=== PATIENT | male | born 1990 | race Caucasian/White ===

== ENCOUNTER 2019-01-10 13:41 | Observation (INO) | payer MEDICAID, OTHER ==
[~2019-01-10] VITALS: Ht 182.9 cm; Wt 113.0 kg
[2019-01-10] MEDS ORDERED: morphine 4 MG/ML inj SYRINge IV ONE ×3 (13:50→18:55)
[2019-01-10] MEDS ORDERED: ondansetron/PF 4mg/2ml inj IV ONE (13:50)
[2019-01-10] MEDS ORDERED: normal saline 1000ML IV soln IVB ONE (13:50)
[2019-01-10] MEDS ORDERED: iohexol 300mg/ml 100ml inj. ONE (13:56)
--- NOTE | 2019-01-10 14:01 | NUR ---
completed his fast which was negative
[2019-01-10 14:04] LABS: BASOPHILS # (AUTO) 0.1 X10'3 (0-0.2); BASOPHILS % (AUTO) 1.1 % (0-1); EOSINOPHILS # (AUTO) 0.1 X10'3 (0-0.9); EOSINOPHILS % (AUTO) 0.9 % (0-6); HEMATOCRIT 48.3 % (42.0-52.0); HEMOGLOBIN 16.8 g/dl (14.0-17.9); LYMPHOCYTES # (AUTO) 2.4 X10'3 (1.1-4.8); LYMPHOCYTES % (AUTO) 32.7 % (21-51); MEAN CORPUSCULAR HEMOGLOBIN 30.1 PG (27.0-31.0); MEAN CORPUSCULAR HGB CONC 34.9 g/dL (33.0-36.5); MEAN CORPUSCULAR VOLUME 86.4 FL (78-98); MEAN PLATELET VOLUME 7.4 FL (7.4-10.4); MONOCYTES # (AUTO) 0.6 X10'3 (0-0.9); MONOCYTES % (AUTO) 7.6 % (2-12); NEUTROPHILS # (AUTO) 4.3 X10'3 (1.8-7.7); NEUTROPHILS % (AUTO) 57.7 % (42-75); PLATELET COUNT 443 X10'3 (140-440); RED BLOOD COUNT 5.59 X10'6 (4.70-6.10); RED CELL DISTRIBUTION WIDTH 12.6 % (11.5-14.5); WHITE BLOOD COUNT 7.4 X10'3 (4.5-11.0)
[2019-01-10 14:14] LABS: ALANINE AMINOTRANSFERASE 58 U/L (12-78); ALBUMIN 4.6 G/DL (3.4-5.0); ALBUMIN/GLOBULIN RATIO 1.3 (1.1-1.5); ALKALINE PHOSPHATASE 79 IU/L (46-116); ANION GAP 10 (8-16); ASPARTATE AMINO TRANSFERASE 26 U/L (10-37); BILIRUBIN,TOTAL 0.3 MG/DL (0.1-1.0); BLOOD UREA NITROGEN 11 MG/DL (7-18); BUN/CREATININE RATIO 12.1 (5.4-32.0); CHLORIDE 105 MMOL/L (99-107); CREATINE KINASE 400 U/L (39-308); CREATININE 0.91 MG/DL (0.60-1.10); ETHANOL < 0.010 GM/DL (0.0-0.010); GLUCOSE 105 MG/DL (70-104); POTASSIUM 4.1 MMOL/L (3.5-5.1); SODIUM 141 MMOL/L (135-145); TOTAL CARBON DIOXIDE 26.3 MMOL/L (24-32); TOTAL PROTEIN 8.2 G/DL (6.4-8.2); eGFR > 90 ML/MIN
--- NOTE | 2019-01-10 14:40 | NUR ---
pt back from ct via [place], tolerated well
--- NOTE | 2019-01-10 15:12 | NUR ---
trauma status removed, ct's clear, in to speak with pt
[2019-01-10] MEDS ORDERED: NO HOME MEDS (15:32)
[2019-01-10] MEDS ORDERED: magnesium hydroxide 30ml (MOM) UD suspension PO PRN (17:50)
[2019-01-10] MEDS ORDERED: ondansetron/PF 4mg/2ml inj IV PRN (17:50)
[2019-01-10] MEDS ORDERED: potassium Cl 20 mEq SR tablet PO PRN ×2 (17:50)
[2019-01-10] MEDS ORDERED: potassium CL 10mEq/100ml bag 100 ML IV PRN ×2 (17:50)
[2019-01-10] MEDS ORDERED: acetaminophen 325mg tablet PO PRN ×2 (17:50)
[2019-01-10] MEDS ORDERED: magnesium 2GM in 50ml NS 50 ML IV PRN (17:50)
[2019-01-10] MEDS ORDERED: diphenhydrAMINE 25mg capsule PO PRN (17:50)
[2019-01-10] MEDS: K and/or MAG REPLACEMENT MC SCH (17:50)
[2019-01-10] MEDS ORDERED: HYDROcodone/acetaminophen 5mg/325mg tablet PO PRN (17:50)
[2019-01-10] MEDS ORDERED: mag hydrox/Alum hydrox/simeth 30ml oral suspension PO PRN (17:50)
[2019-01-10] MEDS ORDERED: magnesium Cl slow-release 64mg tablet PO PRN (17:50)
[2019-01-10] MEDS ORDERED: magnesium 4gm in 100ml NS 100 ML IV PRN (17:50)
--- NOTE | 2019-01-10 18:27 | NUR ---
UPON ASSUMING CARE FROM FLORES VYAS, NO TRIAGE ASSESSMENT WAS DOCUMENTED OR COMPLETED
[2019-01-10 18:41] LABS: CLARITY,URINE CLEAR (Clear); COLOR,URINE YELLOW (Yellow); GLUCOSE, URINE NEGATIVE (Neg); KETONES,URINE NEGATIVE (Neg); LEUKOCYTE ESTERASE ,URINE NEGATIVE (Neg); NITRITES, URINE NEGATIVE (Neg); OCCULT BLOOD,URINE NEGATIVE (Neg); PROTEIN,URINE NEGATIVE (Neg); UROBILINOGEN,URINE 0.2 E.U/dL (0.2-1.0)
[2019-01-10 18:43] LABS: UA COLLECTION TYPE CLN CATCH MIDSTREAM
[2019-01-10 18:50] LABS: URINE AMPHETAMINE SCREEN NEGATIVE (Neg); URINE BARBITUATE SCREEN NEGATIVE (Neg); URINE BENZODIAZEPINES SCREEN NEGATIVE (Neg); URINE CANNABINOID SCREEN POSITIVE (Neg); URINE COCAINE SCREEN NEGATIVE (Neg); URINE METHADONE SCREEN NEGATIVE (Neg); URINE OPIATE SCREEN POSITIVE (Neg); URINE PHENCYCLIDINE SCREEN NEGATIVE (Neg)
[2019-01-10] MEDS: normal saline 1000ml 1,000 ML IV SCH (19:00)
[2019-01-10 20:30] VITALS: BP 132/70
[2019-01-11] VITALS: BP 159/84
[2019-01-11] MEDS: normal saline 1000ml 1,000 ML IV SCH ×2 (01:35→09:31)
[2019-01-11] MEDS: HYDROcodone/acetaminophen 10/325mg tab PO PRN ×2 (01:35→07:27)
[2019-01-11 01:39] LABS: BASOPHILS # (AUTO) 0.1 X10'3 (0-0.2); BASOPHILS % (AUTO) 1.1 % (0-1); EOSINOPHILS # (AUTO) 0.1 X10'3 (0-0.9); EOSINOPHILS % (AUTO) 1.9 % (0-6); HEMATOCRIT 43.5 % (42.0-52.0); HEMOGLOBIN 15.1 g/dl (14.0-17.9); LYMPHOCYTES # (AUTO) 2.6 X10'3 (1.1-4.8); LYMPHOCYTES % (AUTO) 37.1 % (21-51); MEAN CORPUSCULAR HGB CONC 34.6 g/dL (33.0-36.5); MEAN CORPUSCULAR VOLUME 86.5 FL (78-98); MEAN PLATELET VOLUME 7.4 FL (7.4-10.4); MONOCYTES # (AUTO) 0.6 X10'3 (0-0.9); MONOCYTES % (AUTO) 8.2 % (2-12); NEUTROPHILS # (AUTO) 3.7 X10'3 (1.8-7.7); NEUTROPHILS % (AUTO) 51.7 % (42-75); PLATELET COUNT 372 X10'3 (140-440); RED BLOOD COUNT 5.03 X10'6 (4.70-6.10); RED CELL DISTRIBUTION WIDTH 12.8 % (11.5-14.5); WHITE BLOOD COUNT 7.1 X10'3 (4.5-11.0)
[2019-01-11 01:51] LABS: ALANINE AMINOTRANSFERASE 47 U/L (12-78); ALBUMIN 3.5 G/DL (3.4-5.0); ALBUMIN/GLOBULIN RATIO 1.2 (1.1-1.5); ALKALINE PHOSPHATASE 67 IU/L (46-116); ANION GAP 7 (8-16); ASPARTATE AMINO TRANSFERASE 19 U/L (10-37); BILIRUBIN,TOTAL 0.3 MG/DL (0.1-1.0); BLOOD UREA NITROGEN 10 MG/DL (7-18); BUN/CREATININE RATIO 13.2 (5.4-32.0); CALCIUM 8.3 MG/DL (8.5-10.1); CHLORIDE 108 MMOL/L (99-107); CREATININE 0.76 MG/DL (0.60-1.10); GLUCOSE 102 MG/DL (70-104); POTASSIUM 3.8 MMOL/L (3.5-5.1); SODIUM 143 MMOL/L (135-145); TOTAL PROTEIN 6.4 G/DL (6.4-8.2); eGFR > 90 ML/MIN
[2019-01-11 01:55] LABS: CREATINE KINASE 228 U/L (39-308); PHOSPHORUS 4.2 MG/DL (2.3-4.5)
--- NOTE | 2019-01-11 06:39 | NUR ---
Problems reprioritized. Patient report given, questions answered & plan of care reviewed with ASAEL Edwards.
--- NOTE | 2019-01-11 06:40 | NUR ---
Patient in room [id number]. I have received report from Judy Vega RN and had the opportunity to ask questions and assume patient care.
[2019-01-11 08:00] VITALS: BP 124/72
[2019-01-11] MEDS: K and/or MAG REPLACEMENT MC SCH (08:00)
[2019-01-11] MEDS ORDERED: IBUP-2697 PO (09:44)
[2019-01-11 12:00] VITALS: BP 134/77
== END 2019-01-11 12:10 | disposition home or self-care (01) ==
LOC: ER 13:42 → SUR 3N 20:34 → CMPBEDREQ 20:36
PROVIDERS: ADMIT Family Medicine; ATTEND Family Medicine
DX: S29.9XXA Unspecified injury of thorax, initial encounter (principal); W20.8XXA Other cause of strike by thrown, projected or falling object, initial encounter; F12.10 Cannabis abuse, uncomplicated; F17.210 Nicotine dependence, cigarettes, uncomplicated; Y93.89 Activity, other specified; Y92.69 Other specified industrial and construction area as the place of occurrence of the external cause
CPT/HCPCS: 36415; 71045; 71046; 71260; 72125; 74177; 80053; 80305; 80320; 81003; 82550; 83735; 84100; 84484; 85025; 85610; 86885; 86900; 86901; 87081; 93005; 96374; 96375; 96376; 99291; G0378; J2270; J2405; J7030; Q9967